=== PATIENT | female | born 1985 | race Caucasian/White ===

== ENCOUNTER 2023-12-28 10:11 | Inpatient (IN) | payer BC, SELFPAY ==
[2023-12-28] VITALS (17 sets, daily range): BP systolic 102–134; BP diastolic 62–97; BMI 35.1; BMI 34.9
[2023-12-28 05:45] LABS: % Basophils 0.4 % (0-2); % Eosinophils 1.6 % (0-6); % Immature Granulocytes 0.6 % (0-0.5); % Lymphocytes 14.6 % (20.5-51.1); % Monocytes 4.8 % (1.7-9.3); Absolute Basophils 0.1 10^3/uL (0-0.2); Absolute Eosinophils 0.2 10^3/uL (0-0.7); Absolute Immature Granulocytes 0.1 10^3/uL (0-0.05); Absolute Lymphocytes 1.7 10^3/uL (1.2-3.4); Absolute Monocytes 0.6 10^3/uL (0.1-0.6); Absolute Neutrophils 9.1 10^3/uL (1.4-6.5); Hemoglobin 14.5 g/dL (12.0-16.0); Mean Corp Hgb Conc. 36.3 g/dL (33.0-37.0); Mean Corpuscular Hgb 30.1 pg (27.0-31.0); Mean Corpuscular Volume 83.2 fL (81.0-99.0); Mean Platelet Volume 10.2 fL (7.4-10.4); Nucleated Red Blood Cells % 0 %; Platelet Count 266 10^3/uL (130-400); Red Blood Cell Count 4.81 10^6/uL (4.20-5.40); Red Cell Dist. Width 12.4 % (11.5-14.5); White Blood Cell Count 11.6 10^3/uL (4.8-10.8)
[2023-12-28 06:10] LABS: ALT (SGPT) 34 U/L (0-35); AST (SGOT) 26 U/L (14-36); Albumin 4.5 g/dl (3.5-5.0); Alkaline Phosphatase 84 U/L (38-126); Blood Urea Nitrogen 10 mg/dl (7-17); Calcium 9.9 mg/dl (8.4-10.2); Carbon Dioxide 23 mmol/L (22-30); Chloride 108 mmol/L (98-107); Estimated Creatinine Clearance 117 ml/min; Glucose 115 mg/dl (70-99); Lipase 129 U/L (23-300); Potassium 4.2 mmol/L (3.5-5.1); Sodium 142 mmol/L (135-145); Total Bilirubin 0.5 mg/dl (0.2-1.3); Total Protein 7.8 g/dl (6.3-8.2); eGFR > 60.00
[2023-12-28 06:11] LABS: Urine Albumin Negative (Neg - Trace); Urine Bilirubin Negative (Negative); Urine Character Clear (Clear); Urine Color Yellow; Urine Glucose Negative (Negative); Urine Ketone Negative (Negative); Urine Leukocyte Trace (Negative); Urine Nitrite Negative (Negative); Urine Occult Blood Negative (Negative); Urine Urobilinogen Negative (Neg - 1+)
--- NOTE | 2023-12-28 06:13 | ED.GENMED ---
History of Present Illness
General
Chief Complaint: Abdominal Pain
Source: patient
Exam Limitations: none
Time Seen by Provider: 12/28/23 06:06
Nursing documentation reviewed up to this point in time: agreed with
Travel History
Have you had any contact with someone who has COVID-19?: No
Do you have any symptoms of coronavirus? Fever > 100 degrees, chills, cough, shortness of breath, sore throat, loss of taste or smell, muscle aches, or headache?: No
History of Present Illness
History of Present Illness:
The patient is a 38-year-old female who reports upper abdominal pain. Patient reports it woke her up out of her sleep at around 2 AM. The pain is associated with nausea. Patient tried to Tums without relief. She denies vomiting, fever and chest
pain. She denies any bowel changes. Patient has a prior history of but no other abdominal surgeries
Past History
Past History
ED Past Medical History: Hypothyroidism
ED Past Surgical History: and Orthopedic
Social History
Tobacco: Non-smoker
Alcohol: Other
Drug: None
Personal: Other
Living: with family
Employment: Other
Family History
Family History: Other
Review of Systems
Review of Systems
Allergies reviewed?: Yes
All Other Systems: ROS reviewed and negative except as documented in HPI and ROS
Constitutional: Reports no symptoms
EENT: Reports no symptoms
Respiratory: Reports no symptoms
Cardiac: Reports no symptoms
ABD/GI: Reports abdominal pain and nausea
: Reports no symptoms
Musculoskeletal: Reports no symptoms
Skin: Reports no symptoms
Neurological: Reports no symptoms
Endocrine: Reports no symptoms
Hematologic/Lymphatic: Reports no symptoms
Psychiatric: Reports no symptoms
Phy Exam
Physical Exam
Physical Exam:
Physical Exam
General: no apparent distress, not acutely ill
Neck: supple. no meningeal signs. normal psoterior pharynx
Heart: s1/s2 regular rate and rhythm, no murmur. equal radial pulses.
Lungs: no acute respiratory distress. clear bilaterally
Abdomen: Soft. Nondistended. Normal bowel sounds. Mild epigastric tenderness. No rebound or guarding. No pulsatile mass
Neuro: alert and oriented. no focal neurological deficits
Skin: no rash
Psychiatric: well kept. interactive and cooperative
Extremities: no edema. no calf tenderness. negative homans. good distal pulses
Course
Orders/Labs/Results
Orders:
Orders
12/28/23 05:23
IV Insert/Care/Rem.- Treatment PRN
12/28/23 05:35
Complete Blood Count/With Diff Urgent
Comprehensive Metabolic Panel Urgent
Lipase Urgent
12/28/23 05:51
HCG, Urine Qualitative Screen Urgent
Date Specimen was Collected: 12/28/23
Time Specimen was Collected: 05:49
Comment: ADD ON
UA Reflex to Culture [Urinalysis Reflex To Culture] Urgent
Date Specimen was Collected: 12/28/23
Time Specimen was Collected: 05:49
Urine Microscopic Reflex Cult Urgent
Urine Culture Urgent
JOAQUIN Source: U
Specimen Description:
Date Specimen was Collected: 12/28/23
Time Specimen was Collected: 05:49
12/28/23 06:13
Mag Hydrox/Al Hydrox/Simeth [Maalox] 30 ml Phenobarb/Hyoscy/Atropine/Scop [] 10 ml Viscous Lidocaine 2% [Xylocaine Viscous Cup] 10 ml PO NOW
US Abdomen Complete/Upper Urgent
Comment:
Reason For Exam: upper ab pain
12/28/23 06:17
Add On- LAB Urgent
Tests Added?: urine HCG
Mag Hydrox/Al Hydrox/Simeth [Maalox] 30 ml .ROUTE .[facility]MED [facility]
Phenobarb/Hyoscy/Atropine/Scop [] 10 ml .ROUTE .[facility]-MED ONE
Viscous Lidocaine 2% [Xylocaine Viscous Cup] 15 ml .ROUTE .ST[facility]-MED ONE
12/28/23 07:35
Morphine Sulfate 4 mg IV NOW STA
Ondansetron Injectable [Zofran] 4 mg IV NOW STA
12/28/23 07:36
Morphine Sulfate 4 mg .ROUTE .STK-MED ONE
Ondansetron Injectable [Zofran] 4 mg .ROUTE .STK-MED ONE
Abnormal Lab Results
12/28/23 12/28/23
05:35 05:51
WBC 11.6 H 10^3/uL
(4.8-10.8)
Abs Immat Gran (auto) 0.1 H 10^3/uL
(0-0.05)
Absolute Neuts (auto) 9.1 H 10^3/uL
(1.4-6.5)
Immature Gran % 0.6 H %
(0-0.5)
Neutrophils % 78.0 H %
(42.2-75.2)
Lymphocytes % 14.6 L %
(20.5-51.1)
Chloride 108 H mmol/L
(98-107)
Glucose 115 H mg/dl
(70-99)
Leukocyte Esterase Rfl Trace A
(Negative)
Urine RBC 3-6 A /HPF
(0-2)
Urine Bacteria (Reflex) Moderate A
(Negative)
12/28/23 05:35
12/28/23 05:35
Vital Signs
Initial and Last Documented VS:
Initial Vital Signs
Temp Pulse Resp BP Pulse Ox
98.2 F 92 18 134/97 99
12/28/23 05:15 12/28/23 05:15 12/28/23 05:15 12/28/23 05:15 12/28/23 05:15
Last Documented Vital Signs
Temp Pulse Resp BP Pulse Ox
98.2 F 92 18 132/88 97
12/28/23 05:15 12/28/23 05:15 12/28/23 05:15 12/28/23 07:02 12/28/23 07:02
MDM/Problems Addressed
Differential Diagnosis Includes:
Acute gastritis, acute cholecystitis obstruction
MDM/Problems Addressed:
Patient presents with acute epigastric abdominal pain
*Radiology
Radiology exam reviewed: radiology read reviewed
*Pulse Oximetry
Patient hypoxic: no
*EKG
Interpreted by ED Provider?: NA
*Aircraft Cleaner Interpretation
Rate: Aircraft Cleaner- N/A
*Critical Care Note
Total Time (30-74mins, 75-104mins- exclusive of procedures): Not Applicable
Data Reviewed
Source: patient
Patient Management
Social determinants of health affecting care: Living situation and Strong social support
Discussion with other providers: Other (Dr. Kaplan who agreed to evaluate the patient)
Escalation/DeEscalation of care consider admission/obs:
Patient will be admitted to hospital service for biliary colic.
ED Attending Note
-
Portions of this chart may have been created with voice recognition software.� Occasional wrong word or��sound alike� substitutions may have occurred due to the inherent limitations of voice recognition software.
Discharge Plan
Departure
Patient Disposition: Admit
Date of Disposition: 12/28/23
Time of Disposition: 08:28
Admit to: Med/Surg
Presentation/result/management discussed w/ accepting MD/DO: Hospitalist
Patient with high blood pressure during this ER visit?: Yes
Condition: Good
Covid-19: Not Applicable
Discharge Problem:
Biliary colic
Prescriptions:
No Action
norethindrone-e.estradiol-iron [Junel FE 1.5/30 (28)] 1.5 mg-30 mcg (21)/75 mg (7) Tablet
1 tab PO DAILY
cetirizine [Zyrtec] 10 mg Tablet
10 mg PO DAILY
levothyroxine [Synthroid] 25 mcg Tablet
25 mcg PO DAILY
Zepbound 2.5 mg/0.5 mL Pen Injector
2.5 mg SC TH
Referrals:
Pancho Child PA-C [Family Provider] -
Interventions
Interventions:
*Risk Screen - Suicide Last Done: 12/28/23 05:15
*General Assessment Last Done: 12/28/23 05:15
*Neglect/Abuse Screening Last Done: 12/28/23 05:38
ED- Fall Risk Assessment Last Done: 12/28/23 05:15
*ED COVID-19 Vaccine History Last Done: 12/28/23 05:15
ZG-Cjunin-Qgkorpaswb Assessment Last Done: 12/28/23 05:37
Discharge Date and Time
Print Language: NIGERIEN
[2023-12-28] MEDS: MAALOX 50 PO (06:21)
[2023-12-28 06:37] LABS: HCG, Urine Qualitative Screen Negative
[2023-12-28 06:48] LABS: Urine Mucus Moderate; Urine Squamous Cell >30 /LPF (Few)
[2023-12-28 06:49] LABS: Urine Bacteria Moderate (Negative)
[2023-12-28] MEDS: MORPHINE SULFATE 4 MG IV (07:37)
[2023-12-28] MEDS: ZOFRAN 4 MG IV ×2 (07:38→11:12)
[2023-12-28] MEDS: DILAUDID 0.5 MG IV ×2 (09:29→11:04)
--- NOTE | 2023-12-28 09:52 | HPS.HSE ---
Family Physician
-
Family Physician: Pancho Child
Chief Complaint
-
abd pain
History of Present Illness
Patient is a 38F with PMH of hypothyroidism, obesity came to ER with new onset RUQ pain and nausea/vomiting. Symptom started 2AM in night. No fever overnight. Patient had small episode of vomiting in ER. Denies of previous history of gallbladder
issues/colic. No chest pain/shortness breatt/palpation/change in bowel habits/dysuria.
Medical History
Past Medical History
Past Medical History: Reports Other
Additional Past Medical History:
hypothyroidism, obesity
Past Surgical History: Reports Other
Social History
Tobacco: Non-smoker
Alcohol: None
Drug: None
Personal:
Living: With Family
Family History
Family History: Not pertinent
Allergies / Home Medications
Allergies reflects when Allergies were last updated in [facility].
Home Medications with original date entered in [facility]
Allergy/Medication List:
Allergies
Allergy/AdvReac Type Severity Reaction Status Date / Time
adhesive Allergy Unknown Rash Verified 12/28/23 05:15
Sulfa (Sulfonamide Allergy Unknown Rash Verified 12/28/23 05:15
Antibiotics)
Home Medications
cetirizine 10 mg tablet (Zyrtec) 10 mg PO DAILY 12/28/23
levothyroxine 25 mcg tablet (Synthroid) 25 mcg PO DAILY 12/28/23
norethindrone 1.5 mg-ethinyl estradiol 30 mcg(21)/iron 75 mg(7) tablet (Junel FE 1.5/30 (28)) 1 tab PO DAILY 12/28/23
tirzepatide (weight loss) 2.5 mg/0.5 mL subcutaneous pen injector (Zepbound) 2.5 mg SC TH 12/28/23
Review of Systems
-
A 12 point ROS was completed and negative except as noted: Yes
Physical Exam
Vital Signs
Vital Signs
Temp Pulse Resp BP Pulse Ox
98.2 F 92 18 116/62 90
12/28/23 05:15 12/28/23 05:15 12/28/23 05:15 12/28/23 09:32 12/28/23 09:32
Physical Exam
General: Well Developed, Well Nourished and No Apparent Distress
HEENT: NormoCephalic, Moist mucous membranes and Atraumatic
Respiratory: Clear
Cardiac: S1/S2 and Regular Rhythm; No Murmur or Rub
GI: Soft, Non Distended, Normal Bowel Sounds and Tender (RUQ); No Organomegaly
Rectal: Deferred by Provider
Musculoskeletal: No Clubbing, No Cyanosis and No Edema
Skin: No Rash
Neuro: Nonfocal/grossly intact
Laboratory Results
-
12/28/23 05:35
12/28/23 05:35
Laboratory Results
Total Bilirubin 0.5 mg/dl (0.2-1.3) 12/28/23 05:35
AST 26 U/L (14-36) 12/28/23 05:35
ALT 34 U/L (0-35) 12/28/23 05:35
Alkaline Phosphatase 84 U/L (38-126) 12/28/23 05:35
Lipase 129 U/L (23-300) 12/28/23 05:35
Data Reviewed
-
Ultrasound: Image Personally Visualized and interpreted, Discussed with Patient and Discussed with Family
Impression/Plan
-
ABD US
LIVER: The liver is normal in size measuring 17.4 cm in length. There is no sonographic evidence for focal or diffuse hepatic disease.
BILE DUCTS: There is no intra or extrahepatic biliary dilatation. The common bile duct measures 5 mm in diameter.
GALLBLADDER: The gallbladder is distended to 12.7 cm in length. There are moderate number of small sub-5 mm gallstones in the gallbladder lumen, mostly located in the region of the gallbladder neck. There is no abnormal gallbladder wall thickening.
The anterior gallbladder wall measures 2.6 mm in thickness. The sonographic Navarrete's sign was reportedly negative.

1. Biliary colic
R/o acute cholecystitis
-patient comes in for new onset RUQ pain and N/V
-afebrile in ER. minimal leukocytosis. LFT wnl. Lipase normal
-RUQ US report as above
-Having significant pain and requiring IV dilaudid
-Suspecting cholecystics, may need HIDA scan, await GS input
-Maintain on CL/IVF and anti emetics
-Admit to med/surg
2. Hypothyroidism
-continue on levothyroxine
3. Obesity
- on tirzepatide for weight loss.
DVT PPX -scd
Full code
Admission time : 78 mins
[2023-12-28] MEDS: NSS 1000 IV (10:57)
--- NOTE | 2023-12-28 11:53 | PTCARENOTE ---
Patient admitted from ER into room 407-02. Reviewed plan of care with patient. Awaiting surgical consult. Vital signs stable. Medicated for pain and nausea as ordered with adequate relief.
--- NOTE | 2023-12-28 12:04 | PTCARENOTE ---
Patient for gallbladder removal today. Patient completing hibiclens bath and new gown provided. Patient denies questions at this time. Family at bedside.
--- NOTE | 2023-12-28 13:23 | CON.GS ---
Consultation
-
Requesting Provider: José
Performing Provider: Rosaura
Reason for Consultation: ACC
Medical History
-
Chief Complaint: Abd pain
History of Present Illness:
38F with acute onset upper abd pain woke her from sleep at 2AM after cheesesteak dinner. A/w n/v. Denies changes to stool/urine. Reports the US study was very uncomfortable for her. Never had this problem before.
Past Medical History
Past Medical History: Other (morbid obesity)
Past Surgical History: Reviewed & Noncontributory
Social History
Tobacco: Non-Smoker
Alcohol: None
Drug: None
Personal:
Living: With Family
Family History
Family History: Reviewed & Noncontributory
Allergies / Home Medications
Allergy/AdvReac Type Severity Reaction Status Date / Time
adhesive Allergy Unknown Rash Verified 12/28/23 05:15
Sulfa (Sulfonamide Allergy Unknown Rash Verified 12/28/23 05:15
Antibiotics)
�Medication �Instructions �Recorded �Confirmed �Type
cetirizine 10 mg tablet (Zyrtec) 10 mg PO DAILY Allergies 12/28/23 12/28/23 History
levothyroxine 25 mcg tablet 25 mcg PO DAILY Thyroid 12/28/23 12/28/23 History
(Synthroid)
norethindrone 1.5 mg-ethinyl 1 tab PO DAILY Hormonal Agent 12/28/23 12/28/23 History
estradiol 30 mcg(21)/iron 75 mg(7)
tablet (Junel FE 1.5/30 (28))
tirzepatide (weight loss) 2.5 2.5 mg SC TH weight loss 12/28/23 12/28/23 History
mg/0.5 mL subcutaneous pen
injector (Zepbound)
Review of Systems
-
A 10 point review of systems was completed, and was negative except as per HPI.
Physical Exam
Vital Signs
Temp Pulse Resp BP Pulse Ox
98.8 F 64 18 132/80 98
12/28/23 10:45 12/28/23 10:45 12/28/23 10:45 12/28/23 10:45 12/28/23 10:45
12/27/23 12/28/23 12/29/23
06:59 06:59 06:59
Actual Weight 89.811 kg 89.448 kg
Body Mass Index (BMI) 34.9
Lab Results
12/28/23 05:35
12/28/23 05:35
WBC 11.6 10^3/uL (4.8-10.8) H 12/28/23 05:35
Hgb 14.5 g/dL (12.0-16.0) 12/28/23 05:35
Hct 40.0 % (37.0-47.0) 12/28/23 05:35
Plt Count 266 10^3/uL (130-400) 12/28/23 05:35
Abs Immat Gran (auto) 0.1 10^3/uL (0-0.05) H 12/28/23 05:35
Neutrophils % 78.0 % (42.2-75.2) H 12/28/23 05:35
Physical Exam
General: Well Developed, Well Nourished and No Apparent Distress
HEENT: Normocephalic and Anicteric
GI: Soft, Non Distended, Tender (RUQ/epigastric TTP) and Obese
Skin: Warm and Dry
Neuro: AO x 3
Psych: Calm
Data Reviewed
-
Ultrasound: Image Personally Visualized and interpreted, Report Reviewed by me, Discussed with Physician, Discussed with Patient and Discussed with Family
Labs: Labs Reviewed by me, Discussed with Physician, Discussed with Patient and Discussed with Family
Assessment / Plan
-
38F with biliary colic vs ACC
AFVSS, pain only marginally improved after 12 hrs
Mild luekocytosis, otherwise labs unremarkable
US with stones, no stigamate of ACC, sono hari reported as neg, gb does appear distended
Plan:
OCTOR for rCCY
ICG and cefotetan OCTOR
Risks discussed in detail including but not limited to pain, bleeding, injury to intra-abdominal structures, need for further procedures, infection, conversion to open
SCDs
--- NOTE | 2023-12-28 15:20 | OR.RPT ---
Operative Report
Operative Report
Primary Surgeon: Rosaura
Assisting: Hilary ACEVEDO
Pre-op Diagnosis: Acute calculous cholecystitis
Post-op Diagnosis: Same
Procedure Performed: Robot assisted laparoscopic cholecystectomy
Anesthesia Type: GETA
Specimen / Cultures: Gallbladder
Estimated Blood Loss: 5cc
Complications: None immediate
Operative Findings: Distended thin walled gallbladder with surrounding edema
Date of Surgery: 12/29/23
Indications: This 38F developed right upper quadrant/epigastric pain and on workup was found to have cholelithiasis with normal LFTs and a normal sized common duct. Laparoscopic cholecystectomy was elected using robotic instruments.
Description of procedure: The patient was placed on the operating table in the supine position. General anesthesia was induced. A time-out was completed verifying correct patient, procedure, site, positioning, and special equipment prior to
beginning this procedure. An orogastric tube was placed. The abdomen was prepped and draped in the usual sterile fashion. A stab incision was made in left upper quadrant and the Veress needle was inserted. Proper position was confirmed by aspiration
and saline meniscus test. The abdomen was insufflated with carbon dioxide to a pressure of 12 mmHg. The patient tolerated insufflation well.
A 8mm trocar was then inserted at the umbilicus. The laparoscope was inserted and the abdomen inspected. No injuries from initial trocar placement or Veress needle insertion were noted. Additional 8mm trocars were then inserted in the following
locations: two in the right lower quadrant and one in the left upper quadrant. The abdomen was inspected and no abnormalities were found. The table was placed in the reverse Trendelenburg position with the right side up. The dome of the gallbladder
was grasped with an atraumatic grasper and retracted over the dome of the liver. The infundibulum was also grasped with an atraumatic grasper and retracted toward the right lower quadrant. This maneuver exposed Calot�s triangle. The gallbladder
wall was thin and friable and there was significant wall edema. The peritoneum overlying the gallbladder infundibulum was then incised and the cystic duct and cystic artery identified and circumferentially dissected so that a clear view of the liver
was achieved through a window between the cystic duct an cystic artery. At this time, the only two structures going into the gallbladder were the cystic artery and cystic duct. The common duct location was verified with ICG and protected.
The cystic duct and cystic artery were then doubly clipped and divided close to the gallbladder. The gallbladder was then dissected from its peritoneal attachments by electrocautery. Hemostasis was assured and the gallbladder and contained stones
were removed using an endoscopic retrieval bag placed through the umbilical port. The gallbladder was passed off the table as a specimen. The gallbladder fossa was copiously irrigated with saline and hemostasis was again assured. There was no
evidence of bleeding from the gallbladder fossa or cystic artery or leakage of the bile from the cystic duct stump. The umbilical trocar site was closed at the fascial level laparoscopically with 2-0 PDS. Secondary trocars were removed under direct
vision and noted to be hemostatic. The laparoscope was withdrawn and the umbilical trocar removed. The abdomen was allowed to collapse. The skin was closed with subcuticular sutures of 4-0 monocryl and topical skin adhesive. The orogastric tube was
removed.
The patient tolerated the procedure well and was taken to the postanesthesia care unit in stable condition.
[2023-12-28] MEDS: DILAUDID 0.25 MG IV (16:00)
--- NOTE | 2023-12-28 17:50 | PTCARENOTE ---
Patient post lap cortney. Lap sites CDI. Patient denies pain at this time. Vital signs stable. Advanced to regular diet. Reviewed discharge instructions with patient and who both verbalize understanding and deny questions at this time. Written
instructions provided on post lap cortney care.
[2023-12-28] MEDS: NSS IV (19:48)
[2023-12-28] MEDS: ROXICODONE 5 MG PO (20:04)
[2023-12-29 03:28] VITALS: BP 121/83
[2023-12-29] MEDS: SYNTHROID 25 MCG PO (05:16)
[2023-12-29 05:58] LABS: Hematocrit 40.1 % (37.0-47.0); Hemoglobin 14.2 g/dL (12.0-16.0); Mean Corp Hgb Conc. 35.4 g/dL (33.0-37.0); Mean Corpuscular Hgb 29.7 pg (27.0-31.0); Mean Corpuscular Volume 83.9 fL (81.0-99.0); Mean Platelet Volume 10.5 fL (7.4-10.4); Platelet Count 300 10^3/uL (130-400); Red Blood Cell Count 4.78 10^6/uL (4.20-5.40); Red Cell Dist. Width 12.3 % (11.5-14.5); White Blood Cell Count 11.8 10^3/uL (4.8-10.8)
[2023-12-29 06:24] LABS: ALT (SGPT) 51 U/L (0-35); AST (SGOT) 45 U/L (14-36); Albumin 4.1 g/dl (3.5-5.0); Alkaline Phosphatase 82 U/L (38-126); Blood Urea Nitrogen 9 mg/dl (7-17); Calcium 9.4 mg/dl (8.4-10.2); Carbon Dioxide 22 mmol/L (22-30); Chloride 106 mmol/L (98-107); Estimated Creatinine Clearance 117 ml/min; Glucose 118 mg/dl (70-99); Potassium 4.6 mmol/L (3.5-5.1); Sodium 138 mmol/L (135-145); Total Bilirubin 0.7 mg/dl (0.2-1.3); Total Protein 7.4 g/dl (6.3-8.2); eGFR > 60.00
[2023-12-29 07:55] VITALS: BP 128/75
[2023-12-29] MEDS: ROXICODONE 5 MG PO (08:01)
[2023-12-29] MEDS: ZYRTEC 10 MG PO (08:02)
--- NOTE | 2023-12-29 09:31 | W.PN.GS2 ---
Today's Communication / Plan
-
DC
Assessment / Plan
-
38F POD1 s/p rCCY for ACC
Doing well post-op
mild chlorhexidine allergy noted
OK for DC home
Subjective Data
-
Date of Service: December 29, 2023
AFVSS, ambulating, mike PO, pain controlled, no complaints
Objective Data
-
Intake and Output
12/28/23 12/29/23 12/30/23
06:59 06:59 06:59
Intake Total 100 / 100
Balance 100 / 100
Intake:
IV fluids (Total) 100 / 100
normosol 100 / 100
Other:
Number of approximated MODERATE 1
amounts of urine
Number of approximated LARGE 2
amounts of urine
Vital Signs
Temp Pulse Resp BP Pulse Ox
98.6 F 82 16 128/75 98
12/29/23 07:55 12/29/23 07:55 12/29/23 07:55 12/29/23 07:55 12/29/23 08:00
Lab Results
12/29/23 05:21
12/29/23 05:21
Calcium 9.4 mg/dl (8.4-10.2) 12/29/23 05:21
Total Bilirubin 0.7 mg/dl (0.2-1.3) 12/29/23 05:21
AST 45 U/L (14-36) H 12/29/23 05:21
ALT 51 U/L (0-35) H 12/29/23 05:21
Alkaline Phosphatase 82 U/L (38-126) 12/29/23 05:21
Total Protein 7.4 g/dl (6.3-8.2) 12/29/23 05:21
Albumin 4.1 g/dl (3.5-5.0) 12/29/23 05:21
Physical Exam
-
Gen: NAD
Abd: soft, approp ttp, incisions cdi, laterally on both sides a mild erythematous/maculopapular rash (likely reaction to chlorhexidine)
--- NOTE | 2023-12-29 09:46 | CM ---
met with patient and danielle.patient lives with her in house with no amos,her bed and bath is on the second level,she is totally I amb and with adl's.her pcp is dr viki michelle and she use [facility] in [place].she has
never had a vn or been to ip rehab.
patient is adm for winnie barr,pod #1,pain is controlled, she is ambulating,had solids for brekfast.patient will dc home today with no needs. to transport patient home.Plan:home with no needs.
== END 2023-12-29 11:15 | disposition home or self-care (01) | DRG 419 ==
LOC: 4 EAST ACU 10:11
PROVIDERS: Student in an Organized Health Care Education/Training Program; ADMITTING PHYSICIAN Hospitalist; ATTENDING PHYSICIAN Surgery; EMERGENCY PHYSICIAN Emergency Medicine; FAMILY PHYSICIAN Physician Assistant Medical
PROC: 8E0W4CZ Robotic Assisted Procedure of Trunk Region, Percutaneous Endoscopic Approach (ICD-10-PCS; 2023-12-29)
PROC: 0FT44ZZ Resection of Gallbladder, Percutaneous Endoscopic Approach (ICD-10-PCS; 2023-12-29)
DX: K80.00 Calculus of gallbladder with acute cholecystitis without obstruction (principal); E03.9 Hypothyroidism, unspecified; E66.01 Morbid (severe) obesity due to excess calories; Z68.34 Body mass index [BMI] 34.0-34.9, adult
CPT/HCPCS: 88304; 76700; 80053; 81003; 81015; 81025; 83690; 85025; 85027; 87086; 96374; 96375; 99284